=== PATIENT | male | born 1965 | race Caucasian/White ===

== ENCOUNTER → 2020-07-01 12:22 | Outpatient (CLI) | payer BC, SELFPAY ==
[2018-09-01 11:38] VITALS: BMI 46.8
[2020-07-01 14:14] LABS: Hematocrit 47.4 % (40-54); Hemoglobin 14.7 g/dL (13.0-16.5); Mean Corpuscular Hgb 28.7 pg (27.0-32.0); Mean Corpuscular Volume 92.6 fL (80-94); Mean Platelet Vol. 9.7 fl (6.2-12.0); Platelet Count 308 K/mm3 (150-450); RBC Distribution Width CV 14.4 % (11.6-14.6); RBC Distribution Width SD 49.1 fl (35.1-43.9); Red Blood Count 5.12 M/mm3 (4.6-6.2); White Blood Count 5.4 K/mm3 (4.4-11.0)
[2020-07-01 14:42] LABS: ALB/GLOB Ratio 0.9 RATIO (0.9-2.4); AST(SGOT) 19 U/L (15-37); Alanine Aminotransfer ALT/SGPT 21 U/L (16-61); Albumin, Serum 3.3 g/dL (3.2-5.0); Alkaline Phosphatase 131 U/L (45-117); Anion Gap 5 (5-15); BUN 12 mg/dL (7-18); Calcium,Total 8.6 mg/dL (8.5-10.1); Chloride 106 mmol/L (98-107); Creatinine, Serum 0.63 mg/dL (0.70-1.30); EST Glomerular Filtration Rate 140 mL/min (>60); Est Glom Filt Rate - Afr Amer 169 mL/min (>60); Globulin 3.5 g/dL (2.2-4.2); Glucose 78 mg/dL (74-106); Potassium 3.9 mmol/L (3.5-5.1); Protein, Total 6.8 g/dL (6.4-8.2); Sodium Level 142 mmol/L (136-145)
== END ==
PROVIDERS: Referring Provider Nurse Practitioner Adult Health; Visit Provider Nurse Practitioner Adult Health
DX: I10 Essential (primary) hypertension (principal)
CPT/HCPCS: 36415; 80053; 85027

== ENCOUNTER 2021-06-10 17:27 | Emergency (ER) | payer BC, SELFPAY ==
[2021-06-10 17:28] VITALS: BP 166/82; PULSE 100; RESP 20; TEMP 36.4; O2SAT 99; BMI 36.6
[2021-06-10 18:15] LABS: Bacteria 0 SEEN /hpf (None Seen); Mucous, Urine 0 SEEN /hpf (<or=2+); Red Blood Cells-Urine 0 SEEN /hpf (0-5); Squamous Epithelial Cells - UA 0 SEEN /hpf (0-5); White Blood Cells 0 SEEN /hpf (0-5)
[2021-06-10 18:22] LABS: Color, Urine Yellow (Yellow); Glucose, Dipstick Normal (Normal); Ketone-Dipstick Negative (Negative); Leukocyte Esterase-Dipstick Negative /ul (Negative); Nitrite-Dipstick Negative (Negative); Occult Blood-Urine Negative /ul (Negative); Protein-Dipstick Negative (Negative); Urine Bilirubin Dipstick Negative (Negative); Urine Clarity Clear (Clear); Urine Urobilinogen Normal (Normal)
--- NOTE | 2021-06-10 20:03 | US_ITS ---
INDICATION: testicular pain EXAMINATION: US Scrotum (Contents) TECHNIQUE: Realtime ultrasound of the testicles was performed with grayscale, Color Doppler and spectral Doppler analysis. COMPARISON: None. FINDINGS: RIGHT: TESTIS: Measures 3.6 x 2.4 x 2.1 cm. Normal in size and echotexture, without focal lesion. COLOR DOPPLER: Normal arterial flow present in the testicle with monophasic waveforms. EPIDIDYMIS: Normal in size and echotexture, without focal lesion. [Normal color Doppler flow pattern in the epididymis. HYDROCELE: None. VARICOCELE: None. LEFT: TESTIS: Measures 3.8 x 2.4 x 2 cm. Normal in size and echotexture, without focal lesion. Scrotal neto. COLOR DOPPLER: Normal arterial flow present in the testicle with monophasic waveforms. EPIDIDYMIS: Normal in size and echotexture, without focal lesion. [Normal color Doppler flow pattern in the epididymis. HYDROCELE: Small. VARICOCELE: None. US/Testicular with Arterial Flow IMPRESSION: Small left hydrocele. Otherwise, normal bilateral testes and epididymides. Electronically Signed: Ozzy Sharp MD at 21:20 EDT Tel , Service support ,
--- NOTE | 2021-06-10 21:16 | ED.RN ---
PT HIT CALL LIGHT C/O URINARY BURNING S/P CATHETER PLACEMENT. TELLS THIS RN IF YOU DON'T TAKE THIS OUT RIGHT NOW, I'M GOING TO PULL IT OUT. EXPLAINED TO PT THAT IF HE'S UNABLE TO URINATE AFTER REMOVAL ANOTHER CATHETER MAY NEED TO BE PLACED. ALSO ADVISED THAT REMOVAL OF THE CATHETER MAY NOT IMPROVE BURNING SENSATION. PT REMAINS INSISTENT ON REMOVAL OF CATHETER. THIS RN DC'D URINARY CATH AND INFORMED DR CLAY.
--- NOTE | 2021-06-10 21:20 | EX.ED.DYSGE1 ---
HPI History of Present Illness Chief Complaint: Complaint Informant: patient Narrative Narrative: 55-year-old male presents to the emergency room with urinary retention. Patient states he has been unable to urinate since 013. He states that usually when he cannot urinate he has pain in his scrotal area after it begins. Yesterday he was moving a cooler that weighs about 4 pounds and he began to get pain in the scrotal area. He states is very difficult for him to explain exactly where it sat. He does see Dr. Abreu for urology. He states that he is uncomfortable with male physicians and would like a nurse present during the examination. Therefore a nurse was present during the examination. [facility] Medical History (Updated 06/10/21 @ 21:[address] Eduardo Mayo DO) Bone lesion Chronic back pain DDD (degenerative disc disease) DVT (deep venous thrombosis) Epididymitis Hyperlipidemia Hypertension Hypothyroidism Kidney stones Neuropathy Obesity Sleep apnea Home Medications Lactobacillus acidophilus 2,000 mmu cells PO BID 09/01/18 [History Last Taken Unknown] apixaban 2.5 mg tablet 5 mg PO BID 09/01/18 [History Last Taken Unknown] cholecalciferol (vitamin D3) 50 mcg (2,000 unit) capsule 2,000 unit PO DAILY 09/01/18 [History Last Taken Unknown] hydrochlorothiazide 25 mg tablet 25 mg PO DAILY 09/01/18 [History Last Taken Unknown] levothyroxine 175 mcg tablet 175 mcg PO DAILY 09/01/18 [History Last Taken Unknown] levothyroxine 200 mcg tablet 250 mcg PO DAILY 09/01/18 [History Last Taken Unknown] losartan 100 mg tablet 100 mg PO DAILY 09/01/18 [History Last Taken Unknown] lovastatin 40 mg tablet 40 mg PO DAILY 09/01/18 [History Last Taken Unknown] mirabegron 25 mg tablet,extended release 24 hr 25 mg PO DAILY 09/01/18 [History Last Taken Unknown] multivitamin 1 tab PO DAILY 09/01/18 [History Last Taken Unknown] potassium citrate 10 mEq (1,080 mg) tablet,extended release 10 meq PO BID tab 09/01/18 [History Last Taken Unknown] pregabalin 100 mg capsule 100 mg PO TID 09/01/18 [History Last Taken Unknown] allopurinol 300 mg PO DAILY 06/10/21 [History Last Taken Unknown] amlodipine 5 mg PO DAILY 06/10/21 [History Last Taken Unknown] bupropion HCl 300 mg PO DAILY 06/10/21 [History Last Taken Unknown] mecobalamin (vitamin B12) [B12 Active] 50 mcg PO DAILY 06/10/21 [History Last Taken Unknown] tadalafil 5 mg PO PRN PRN 06/10/21 [History Last Taken Unknown] Allergy/AdvReac Type Severity Reaction Status Date / Time diphenhydramine Allergy Unknown Unknown Verified 06/10/21 17:28 [From Benadryl] doxycycline Allergy PT UNSURE Verified 06/10/21 17:28 OF REACTION sulfamethoxazole Allergy PT UNSURE Verified 06/10/21 17:28 [From Bactrim] OF REACTION trimethoprim [From Bactrim] Allergy PT UNSURE Verified 06/10/21 17:28 OF REACTION Family History Mother Breast cancer Sister Ovarian cancer Hypertension Diabetes Thyroid disorder Father CVA (cerebral vascular accident) Hypertension Brother Thyroid disorder Hypertension Surgical History Hx of appendectomy Hx of cholecystectomy Hx of cystoscopy Hx of eye surgery Social History Smoking Status: Never smoker second hand exposure: No alcohol intake: former substance use type: does not use caffeine: No frequency: does not exercise ROS ROS ED Constitutional Constitutional ED: Denies chills or weight loss Eyes Eyes: Denies change in vision or diplopia ENT ENT ED: Denies ear pain, rhinorrhea or sore throat Cardiovascular Cardiovascular: Denies chest pain, orthopnea, palpitations or racing heartbeat Respiratory/Chest Respiratory/Chest: Denies cough, dyspnea or orthopnea Gastrointestinal Gastrointestinal: Denies abdominal pain, diarrhea, nausea or vomiting Genitourinary Genitourinary ED: Reports other Details: Scrotal and testicular pain urinary retention ; Denies dysuria, hematuria or urinary frequency Musculoskeletal Musculoskeletal: Denies arthralgias or myalgias Integumentary Denies abscess or rash Neurologic Neurologic: Denies headache(s) or weakness Psychiatric Psychiatric: Denies anxiety, depression, suicidal ideation or suicidal thoughts Endocrine Endocrinology: Denies polydipsia, polyphagia or polyuria Allergic/Immunologic Allergic/Immunologic ED: Denies mouth swelling, tongue swelling or urticaria EXAM Physical Exam Const Vital Signs: 06/10/21 17:28 Temperature 97.5 F L Temperature Source Temporal Pulse Rate 100 Respiratory Rate 20 H Blood Pressure 166/82 H Blood Pressure Mean 110 Pulse Ox 99 Oxygen Delivery Method Room Air Positive well nourished, well developed and obese General Appearance ED: well developed Nutritional Appearance: obese HEENT Reports normocephalic, head/scalp atraumatic and moist mucous membranes Eyes PERRL and EOMs intact bilaterally Neck no lymphadenopathy, supple and no JVD Resp normal respiratory effort and clear to auscultation bilaterally Cardio regular rate, regular rhythm and no murmurs GI normal to inspection, nondistended, normoactive bowel sounds and non-tender Palpation: soft Narrative: Arrieta catheter was placed by nursing and is already in place. Patient reports tenderness of the testicle particular the left. No significant swelling normal lie. Back/Spine no CVA tenderness and normal ROM Extremity normal to inspection General Extremety ED: Negative for edema General Extremity: Negative for edema Neuro oriented x3 and CN's II-XII intact bilaterally Sensorium / Orientation: alert Motor Exam: strength 5/5 throughout Psych mental status grossly normal Mood & Affect: Negative for depressed or tearful Skin no rashes or lesions noted and no wounds MDM MDM MDM Narrative Medical decision making narrative: Approximately 2600 cc of urine was removed with the initial catheter. Urinalysis was negative. Patient was sent for testicular ultrasound and when he returned was complaining of burning and wanted the catheter removed. We tried to explain to him that probably should stay in place since he could not urinate but he stated that if we did remove it he was going to rip it out himself. Therefore we remove the catheter. We will wait and see if he can urinate. Testicular ultrasound read turns with normal findings with exception of a small left hydrocele. Patient has now urinated twice. He should follow-up with urology Lab Data Labs: Laboratory Results - last 24 hr 06/10/21 17:55 Urine Color Yellow Urine Clarity Clear Urine pH 7.0 Ur Specific [place] 1.010 Urine Protein Negative Urine Glucose (UA) Normal Urine Ketones Negative Urine Occult Blood Negative Urine Nitrite Negative Urine Bilirubin Negative Urine Urobilinogen Normal Ur Leukocyte Esterase Negative Urine RBC 0 SEEN Urine WBC 0 SEEN Ur Squamous Epith Cells 0 SEEN Urine Bacteria 0 SEEN Urine Mucus 0 SEEN Radiography Diagnostic Testing: Clinical Impression(s) from Imaging Studies Testicular Ultrasound 06/10/21 20:03 IMPRESSION: Small left hydrocele. Otherwise, normal bilateral testes and epididymides. Electronically Signed: Ozzy Sharp MD at 21:20 EDT Tel , Service support , Discharge Plan Triage Chief Complaint: Complaint ED Provider: Eduardo Mayo Dx/Rx/DC Orders Clinical Impression: Acute urinary retention, Persistent testicular pain Instructions: ED Urinary Retention, Male Prescriptions: No Action losartan 100 mg tablet 100 mg PO DAILY RF: 0 levothyroxine 200 mcg tablet 250 mcg PO DAILY RF: 0 levothyroxine 175 mcg tablet 175 mcg PO DAILY RF: 0 Myrbetriq 25 mg tablet extended release 24 hr 25 mg PO DAILY RF: 0 hydrochlorothiazide 25 mg tablet 25 mg PO DAILY RF: 0 lovastatin 40 mg tablet 40 mg PO DAILY RF: 0 Eliquis 2.5 mg tablet 5 mg PO BID RF: 0 potassium citrate 10 mEq (1,080 mg) tablet extended release 10 meq PO BID RF: 0 Lyrica 100 mg capsule 100 mg PO TID RF: 0 multivitamin tablet 1 tab PO DAILY RF: 0 cholecalciferol (vitamin D3) 2,000 unit capsule 2,000 unit PO DAILY RF: 0 Lactobacillus acidophilus [Acidophilus] capsule 2,000 mmu cells PO BID RF: 0 amlodipine 5 mg tablet 5 mg PO DAILY RF: 0 allopurinol 300 mg tablet 300 mg PO DAILY RF: 0 bupropion HCl 150 mg tablet extended release 24 hr 300 mg PO DAILY RF: 0 tadalafil 5 mg tablet 5 mg PO PRN PRN (Reason: RECTILE DYSFUNCTION) RF: 0 B12 Active 1,000 mcg Tablet,Chewable 50 mcg PO DAILY RF: 0 Referrals: RAMIREZ DUNAWAY [Other] Edgard Abreu MD [STAFF PHYSICIAN] - 3-5 Days Disposition Disposition: Home, Self Care
[2021-06-10 23:43] VITALS: RESP 17
--- NOTE | 2021-06-10 23:45 | NURSING ---
patient has voided twice
[2021-06-11 00:12] VITALS: PULSE 74; RESP 19
== END 2021-06-11 00:14 | disposition home or self-care (01) ==
PROVIDERS: Emergency Provider Emergency Medicine
DX: R33.9 Retention of urine, unspecified (principal); N50.82 Scrotal pain; E66.9 Obesity, unspecified; E03.9 Hypothyroidism, unspecified; I10 Essential (primary) hypertension; G47.30 Sleep apnea, unspecified; Z79.01 Long term (current) use of anticoagulants; Z79.899 Other long term (current) drug therapy
CPT/HCPCS: 76870; 81001; 93976; 99282; A4216

== ENCOUNTER 2021-07-21 18:10 | Emergency (ER) | payer BC, SELFPAY ==
[2021-07-21 18:11] VITALS: BP 145/91; PULSE 75; RESP 16; TEMP 36.2; O2SAT 100; BMI 38.5
--- NOTE | 2021-07-21 19:49 | RAD_ITS ---
STUDY: XR Shoulder Min 2 Views REASON FOR EXAM: Male, 55 years old. PAIN TECHNIQUE: XR Shoulder Min 2 Views COMPARISON: None. FINDINGS: Normal glenohumeral articulation. Normal acromioclavicular joint. Normal acromion. Normal humeral head and visualized proximal humerus. There is periarticular soft tissue calcification consistent with a calcific tendinitis. Normal visualized pulmonary apex. RAD/Shoulder min 2 Views IMPRESSION: There is periarticular soft tissue calcification consistent with a calcific tendinitis. Electronically Signed: Davian Bone MD at 20:23 EST , Service support ,
[2021-07-21] MEDS: Ketorolac 15 MG/ML Vial IM (20:06)
--- NOTE | 2021-07-21 20:24 | EX.ED.UPPERE ---
HPI History of Present Illness Chief Complaint: Upper Extremity Injury Narrative Narrative: 55-year-old male presenting with right shoulder pain. He states this is nontraumatic. Hurts in the anterior portion of the right shoulder. He does describe some pain radiation into his right arm. He does not have chest pain or shortness of breath. Patient is having difficulty moving the right shoulder secondary to pain. He denies any neck pain. [facility] Medical History (Updated 07/21/21 @ 21:[address] Asif Webb, DO) Bone lesion Chronic back pain DDD (degenerative disc disease) DVT (deep venous thrombosis) Epididymitis Hyperlipidemia Hypertension Hypothyroidism Kidney stones Neuropathy Obesity Sleep apnea Home Medications Lactobacillus acidophilus 2,000 mmu cells PO BID 09/01/18 [History Last Taken Unknown] apixaban 2.5 mg tablet 5 mg PO BID 09/01/18 [History Last Taken Unknown] cholecalciferol (vitamin D3) 50 mcg (2,000 unit) capsule 2,000 unit PO DAILY 09/01/18 [History Last Taken Unknown] hydrochlorothiazide 25 mg tablet 25 mg PO DAILY 09/01/18 [History Last Taken Unknown] levothyroxine 175 mcg tablet 175 mcg PO DAILY 09/01/18 [History Last Taken Unknown] levothyroxine 200 mcg tablet 250 mcg PO DAILY 09/01/18 [History Last Taken Unknown] losartan 100 mg tablet 100 mg PO DAILY 09/01/18 [History Last Taken Unknown] lovastatin 40 mg tablet 40 mg PO DAILY 09/01/18 [History Last Taken Unknown] mirabegron 25 mg tablet,extended release 24 hr 25 mg PO DAILY 09/01/18 [History Last Taken Unknown] multivitamin 1 tab PO DAILY 09/01/18 [History Last Taken Unknown] potassium citrate 10 mEq (1,080 mg) tablet,extended release 10 meq PO BID tab 09/01/18 [History Last Taken Unknown] pregabalin 100 mg capsule 100 mg PO TID 09/01/18 [History Last Taken Unknown] allopurinol 300 mg PO DAILY 06/10/21 [History Last Taken Unknown] amlodipine 5 mg PO DAILY 06/10/21 [History Last Taken Unknown] bupropion HCl 300 mg PO DAILY 06/10/21 [History Last Taken Unknown] mecobalamin (vitamin B12) [B12 Active] 50 mcg PO DAILY 06/10/21 [History Last Taken Unknown] tadalafil 5 mg PO PRN PRN 06/10/21 [History Last Taken Unknown] hydrocodone-acetaminophen 1 tab PO Q6H PRN PRN 3 Days #10 tablet 07/21/21 [Rx Last Taken Unknown] Allergy/AdvReac Type Severity Reaction Status Date / Time diphenhydramine Allergy Unknown Unknown Verified 07/21/21 18:13 [From Benadryl] doxycycline Allergy PT UNSURE Verified 07/21/21 18:13 OF REACTION sulfamethoxazole Allergy PT UNSURE Verified 07/21/21 18:13 [From Bactrim] OF REACTION trimethoprim [From Bactrim] Allergy PT UNSURE Verified 07/21/21 18:13 OF REACTION Family History Mother Breast cancer Sister Ovarian cancer Hypertension Diabetes Thyroid disorder Father CVA (cerebral vascular accident) Hypertension Brother Thyroid disorder Hypertension Surgical History Hx of appendectomy Hx of cholecystectomy Hx of cystoscopy Hx of eye surgery Social History Smoking Status: Never smoker second hand exposure: No alcohol intake: former substance use type: does not use caffeine: No frequency: does not exercise ROS ROS ED Constitutional Constitutional ED: Denies chills, fever(s) or sweats Eyes Eyes: Denies blurry vision or change in vision ENT ENT ED: Denies ear pain or sore throat Cardiovascular Cardiovascular: Denies chest pain, palpitations or racing heartbeat Respiratory/Chest Respiratory/Chest: Denies cough, dyspnea or sputum Gastrointestinal Gastrointestinal: Denies abdominal pain, constipation, diarrhea, nausea or vomiting Genitourinary Genitourinary ED: Denies dysuria, hematuria or urinary frequency Musculoskeletal Musculoskeletal: Reports other Details: Right shoulder pain ; Denies arthralgias or neck pain Integumentary Denies abscess, Abrasions or rash Neurologic Neurologic: Denies headache(s), paresthesias or weakness Psychiatric Psychiatric: Denies anxiety, depression, suicidal ideation or suicidal thoughts Endocrine Endocrinology: Denies polydipsia or polyuria EXAM Physical Exam Const Vital Signs: 07/21/21 18:11 Temperature 97.2 F L Temperature Source Temporal Pulse Rate 75 Respiratory Rate 16 Blood Pressure 145/91 H Blood Pressure Mean 109 Pulse Ox 100 Oxygen Delivery Method Room Air Positive well nourished General Appearance ED: NAD HEENT normocephalic and atraumatic Eyes PERRL and EOMs intact bilaterally Resp normal respiratory effort and clear to auscultation bilaterally Cardio regular rate and regular rhythm Extremity Extremity Narrative: Tenderness to palp over the anterior aspect of the right shoulder. Range of motion is limited actively secondary to pain. No obvious deformity. Sensation is intact. Radial pulse 2+. Wrist cap refill all 5 fingers. 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 Psych mental status grossly normal MDM MDM MDM Narrative Medical decision making narrative: Patient presenting with nontraumatic right shoulder pain. Patient given a shot of Toradol and I did obtain an x-ray of the right shoulder. On my interpretation of the right shoulder there appears to be no fracture or subluxation, however the radiologist does state that there might be calcific tendinitis based on his findings. This would fit the patient's examination. Patient will be given Ashby for pain at home and is referred to orthopedics. Impression: 1. Calcific deny Discharge Plan Triage Chief Complaint: Upper Extremity Injury ED Provider: Asif Webb Dx/Rx/DC Orders Instructions: Biceps Tendonitis Proximal Prescriptions: New hydrocodone-acetaminophen 5-325 mg tablet 1 tab PO Q6H PRN PRN (Reason: Pain) 3 Days Qty: 10 RF: 0 No Action losartan 100 mg tablet 100 mg PO DAILY RF: 0 levothyroxine 200 mcg tablet 250 mcg PO DAILY RF: 0 levothyroxine 175 mcg tablet 175 mcg PO DAILY RF: 0 Myrbetriq 25 mg tablet extended release 24 hr 25 mg PO DAILY RF: 0 hydrochlorothiazide 25 mg tablet 25 mg PO DAILY RF: 0 lovastatin 40 mg tablet 40 mg PO DAILY RF: 0 Eliquis 2.5 mg tablet 5 mg PO BID RF: 0 potassium citrate 10 mEq (1,080 mg) tablet extended release 10 meq PO BID RF: 0 Lyrica 100 mg capsule 100 mg PO TID RF: 0 multivitamin tablet 1 tab PO DAILY RF: 0 cholecalciferol (vitamin D3) 2,000 unit capsule 2,000 unit PO DAILY RF: 0 Lactobacillus acidophilus [Acidophilus] capsule 2,000 mmu cells PO BID RF: 0 amlodipine 5 mg tablet 5 mg PO DAILY RF: 0 allopurinol 300 mg tablet 300 mg PO DAILY RF: 0 bupropion HCl 150 mg tablet extended release 24 hr 300 mg PO DAILY RF: 0 tadalafil 5 mg tablet 5 mg PO PRN PRN (Reason: RECTILE DYSFUNCTION) RF: 0 B12 Active 1,000 mcg Tablet,Chewable 50 mcg PO DAILY RF: 0 Primary Care Provider: Kennedy Bragg Referrals: Kennedy Bragg DO [Primary Care Provider] - Beni Berumen DO [STAFF PHYSICIAN] - As soon as possible Disposition Disposition: Home, Self Care Discharge Date/Time: 07/21/21 22:02
[2021-07-21 20:30] VITALS: BP 142/84; PULSE 76; RESP 15; O2SAT 96
[2021-07-21 22:01] VITALS: BP 139/77; PULSE 81; RESP 16; O2SAT 99
== END 2021-07-21 22:02 | disposition home or self-care (01) ==
PROVIDERS: Emergency Provider Student in an Organized Health Care Education/Training Program; PCP Student in an Organized Health Care Education/Training Program
DX: M75.21 Bicipital tendinitis, right shoulder (principal); G47.30 Sleep apnea, unspecified
CPT/HCPCS: 73030; 96372; 99282

== ENCOUNTER 2022-04-18 13:40 | Emergency (ER) | payer BC, SELFPAY ==
[2022-04-18 13:41] VITALS: BP 137/91; PULSE 84; RESP 18; TEMP 36.3; O2SAT 100; BMI 39.1
--- NOTE | 2022-04-18 13:45 | ED.RN ---
PT. 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 NURSE EXPLAINED WE ONLY HAD MALE DOCTORS AT THIS TIME, BUT THAT A FEMALE NURSE CAN BE AT BEDSIDE FOR ASSESSMENT.
[2022-04-18 14:35] LABS: Bacteria 0 SEEN /hpf (None Seen); Mucous, Urine 0 SEEN /hpf (<or=2+); Red Blood Cells-Urine 0 SEEN /hpf (0-5); Squamous Epithelial Cells - UA 0 SEEN /hpf (0-5); White Blood Cells 0 SEEN /hpf (0-5)
[2022-04-18 14:36] LABS: Color, Urine Straw (Yellow); Glucose, Dipstick Normal (Normal); Ketone-Dipstick Negative (Negative); Leukocyte Esterase-Dipstick Negative /ul (Negative); Nitrite-Dipstick Negative (Negative); Occult Blood-Urine Negative /ul (Negative); Protein-Dipstick Negative (Negative); Urine Bilirubin Dipstick Negative (Negative); Urine Clarity Clear (Clear); Urine Urobilinogen Normal (Normal)
--- NOTE | 2022-04-18 14:50 | EDS_ITS ---
HPI History of Present Illness Chief Complaint: Complaint Narrative Narrative: 56-year-old male presenting with inability to void for the last few hours. He states this happened to him in the past. He has had to have Arrieta catheters placed previously. He states he never leaves with a leg bag. He states usually he gets cath and he goes home and he does not have any issues for a while. He sees a urologist in [place]. He states that his urologist just recommends that he call him when these episodes happen for follow-up. Patient has had some suprapubic fullness and pressure. He denies fever, chills, nausea, vomiting. Denies diarrhea or constipation. He denies dysuria or hematuria prior to the episode. He states he does have a history of kidney stones but he does not have flank pain. [facility] Medical History Bone lesion Chronic back pain DDD (degenerative disc disease) DVT (deep venous thrombosis) Epididymitis Hyperlipidemia Hypertension Hypothyroidism Kidney stones Neuropathy Obesity Sleep apnea Home Medications Lactobacillus acidophilus (Acidophilus capsule) 2,000 mmu cells PO BID 09/01/18 [History Last Taken Unknown] apixaban 2.5 mg tablet (Eliquis) 5 mg PO BID 09/01/18 [History Last Taken Unknown] cholecalciferol (vitamin D3) 50 mcg (2,000 unit) capsule 2,000 unit PO DAILY 09/01/18 [History Last Taken Unknown] hydrochlorothiazide 25 mg tablet 25 mg PO DAILY 09/01/18 [History Last Taken Unknown] levothyroxine 175 mcg tablet 175 mcg PO DAILY 09/01/18 [History Last Taken Unknown] levothyroxine 200 mcg tablet 250 mcg PO DAILY 09/01/18 [History Last Taken Unknown] losartan 100 mg tablet 100 mg PO DAILY 09/01/18 [History Last Taken Unknown] lovastatin 40 mg tablet 40 mg PO DAILY 09/01/18 [History Last Taken Unknown] mirabegron 25 mg tablet,extended release 24 hr (Myrbetriq) 25 mg PO DAILY 09/01/18 [History Last Taken Unknown] multivitamin 1 tab PO DAILY 09/01/18 [History Last Taken Unknown] potassium citrate 10 mEq (1,080 mg) tablet,extended release 10 meq PO BID 09/01/18 [History Last Taken Unknown] pregabalin 100 mg capsule (Lyrica) 100 mg PO TID 09/01/18 [History Last Taken Unknown] allopurinol 300 mg tablet 300 mg PO DAILY 06/10/21 [History Last Taken Unknown] amlodipine 5 mg tablet 5 mg PO DAILY 06/10/21 [History Last Taken Unknown] bupropion HCl 150 mg 24 hr tablet, extended release 300 mg PO DAILY 06/10/21 [History Last Taken Unknown] mecobalamin (vitamin B12) 1,000 mcg chewable tablet (B12 Active) 50 mcg PO DAILY 06/10/21 [History Last Taken Unknown] tadalafil 5 mg tablet 5 mg PO PRN PRN RECTILE DYSFUNCTION 06/10/21 [History Last Taken Unknown] hydrocodone-acetaminophen 5-325mg 5mg-325mg 1 tab PO Q6H PRN PRN Pain 3 days #10 TABLETS 07/21/21 [Rx Last Taken Unknown] Allergy/AdvReac Type Severity Reaction Status Date / Time diphenhydramine Allergy Unknown Unknown Verified 04/18/22 13:43 [From Benadryl] doxycycline Allergy PT UNSURE Verified 04/18/22 13:43 OF REACTION sulfamethoxazole Allergy PT UNSURE Verified 04/18/22 13:43 [From Bactrim] OF REACTION trimethoprim [From Bactrim] Allergy PT UNSURE Verified 04/18/22 13:43 OF REACTION Family History Mother Breast cancer Sister Ovarian cancer Hypertension Diabetes Thyroid disorder Father CVA (cerebral vascular accident) Hypertension Brother Thyroid disorder Hypertension Surgical History Hx of appendectomy Hx of cholecystectomy Hx of cystoscopy Hx of eye surgery Social History Smoking Status: Never smoker second hand exposure: No alcohol intake: former substance use type: does not use caffeine: No frequency: does not exercise ROS ROS ED Constitutional Constitutional ED: Denies chills or fever(s) Eyes Eyes: Denies change in vision ENT ENT ED: Denies rhinorrhea or sore throat Cardiovascular Cardiovascular: Denies chest pain or palpitations Respiratory/Chest Respiratory/Chest: Denies cough or dyspnea Gastrointestinal Gastrointestinal: Reports abdominal pain; Denies nausea or vomiting Genitourinary Genitourinary ED: Reports other Details: Inability urinate Musculoskeletal Musculoskeletal: Denies arthralgias or back pain Integumentary Denies abscess Neurologic Neurologic: Denies headache(s) or paresthesias Psychiatric Psychiatric: Denies anxiety or depression EXAM Physical Exam Const Vital Signs: 04/18/22 13:41 Temperature 97.4 F L Temperature Source Temporal Pulse Rate 84 Respiratory Rate 18 Blood Pressure 137/91 H Blood Pressure Mean 106 Pulse Ox 100 Oxygen Delivery Method Room Air Positive well nourished General Appearance ED: NAD; Negative for pallor HEENT Reports moist mucous membranes normocephalic and atraumatic Eyes PERRL and EOMs intact bilaterally Resp normal respiratory effort and clear to auscultation bilaterally Cardio regular rate and regular rhythm GI GI Narrative: Mild suprapubic pressure. Abdomen is benign. No flank pain or CVA tenderness peer Extremity normal to inspection Neuro oriented x3 and CN's II-XII intact bilaterally Sensorium / Orientation: alert Psych mental status grossly normal Skin General Skin Exam: Negative for jaundice or pallor MDM MDM MDM Narrative Medical decision making narrative: Bladder scan performed and shows that his urinary bladder is full. A Arrieta catheter was placed and about 1200 cc was collected over time. Urinalysis was obtained and there is no evidence of infection or occult blood. His abdominal exam is benign. I counseled him that he would need to go with a leg bag to ensure that he is voiding appropriately. He states that he has not had to use leg bag and does not want 1. He states that he is never had this problem happen in episodes that are close together. I did counselor nurses' association him again that more than likely he would have difficulty voiding and would need to come back but he still refuses the Arrieta catheter and leg bag. He states he was started on Flomax about a week ago by his urologist. Arritea catheter will be removed patient will be discharged home. He is to follow-up with urology. Return precautions discussed. Impression: 1. Urinary outlet obstruction Lab Data Attestation: I reviewed the patient's lab results. Labs: Laboratory Results - last 24 hr 04/18/22 14:30 Urine Color Straw Urine Clarity Clear Urine pH 7.0 Ur Specific [place] 1.010 Urine Protein Negative Urine Glucose (UA) Normal Urine Ketones Negative Urine Occult Blood Negative Urine Nitrite Negative Urine Bilirubin Negative Urine Urobilinogen Normal Ur Leukocyte Esterase Negative Urine RBC 0 SEEN Urine WBC 0 SEEN Ur Squamous Epith Cells 0 SEEN Urine Bacteria 0 SEEN Urine Mucus 0 SEEN Discharge Plan Triage Chief Complaint: Complaint ED Provider: Asif Webb Dx/Rx/DC Orders Prescriptions: No Action losartan 100 mg tablet 100 mg PO DAILY levothyroxine 200 mcg tablet 250 mcg PO DAILY levothyroxine 175 mcg tablet 175 mcg PO DAILY Myrbetriq 25 mg tablet extended release 24 hr 25 mg PO DAILY hydrochlorothiazide 25 mg tablet 25 mg PO DAILY lovastatin 40 mg tablet 40 mg PO DAILY Eliquis 2.5 mg tablet 5 mg PO BID potassium citrate 10 mEq (1,080 mg) tablet extended release 10 meq PO BID Lyrica 100 mg capsule 100 mg PO TID multivitamin tablet 1 tab PO DAILY cholecalciferol (vitamin D3) 2,000 unit capsule 2,000 unit PO DAILY Lactobacillus acidophilus [Acidophilus] capsule 2,000 mmu cells PO BID amlodipine 5 mg tablet 5 mg PO DAILY allopurinol 300 mg tablet 300 mg PO DAILY bupropion HCl 150 mg tablet extended release 24 hr 300 mg PO DAILY tadalafil 5 mg tablet 5 mg PO PRN PRN (Reason: RECTILE DYSFUNCTION) B12 Active 1,000 mcg Tablet,Chewable 50 mcg PO DAILY hydrocodone-acetaminophen 5-325 mg tablet 1 tab PO Q6H PRN PRN (Reason: Pain) 3 Days Qty: 10 0RF Primary Care Provider: Kennedy Bragg Referrals: Kennedy Bragg DO [Primary Care Provider] -
[2022-04-18 15:08] VITALS: BP 135/78; PULSE 75; RESP 16; O2SAT 97
== END 2022-04-18 15:10 | disposition home or self-care (01) ==
LOC: ED 14:56
PROVIDERS: Emergency Provider Student in an Organized Health Care Education/Training Program; PCP Student in an Organized Health Care Education/Training Program; Visit Provider Student in an Organized Health Care Education/Training Program
DX: N13.9 Obstructive and reflux uropathy, unspecified (principal); G47.30 Sleep apnea, unspecified; Z86.718 Personal history of other venous thrombosis and embolism
CPT/HCPCS: 81001; 99281; J7030; A4216